=== PATIENT | female | born 1955 | race Caucasian/White ===

== ENCOUNTER 2017-09-07 14:15 | Emergency (ER) | payer MEDICARE ==
[~2017-09-07] VITALS: Ht 177.8 cm; Wt 120.0 kg
[~2017-09-07 14:15] MED LIST: ASPI-496 PO; CARV6.252 PO; CEFT2VIA4 IV; CITA40TA5 PO; DAPT500V6 IV; DOCU-131 PO; ENOX40SY4 SQ; FURO-92 PO; Fish Oil PO; HYDR1AMP IV; LEVO75TA5 PO; LOPE2CAP PO; LORA-446 PO; MORP30TA PO; NICO-486 TD; OMEP-110 PO; OXYC-306 PO; OXYC-307 PO; POTA10TA11 PO; QUET200T4 PO; [UNRECOGNIZED DRUG - CODE] PO
[2017-09-07 14:52] VITALS: BP 119/66
[2017-09-07] MEDS ORDERED: IBUPROFEN 200 MG TABLET PO ONE (16:00)
[2017-09-07] MEDS ORDERED: IBUPROFEN 200 MG TABLET ONE (16:02)
== END 2017-09-07 16:21 | disposition home or self-care (01) ==
LOC: ED 16:15
DX: S50.01XA Contusion of right elbow, initial encounter (principal); I10 Essential (primary) hypertension; K21.9 Gastro-esophageal reflux disease without esophagitis; M10.9 Gout, unspecified; Z90.49 Acquired absence of other specified parts of digestive tract; W20.8XXA Other cause of strike by thrown, projected or falling object, initial encounter; Y93.89 Activity, other specified; Y99.8 Other external cause status; Y92.89 Other specified places as the place of occurrence of the external cause
CPT/HCPCS: 72050; 99284